=== PATIENT | male | born 1955 | race Caucasian/White ===

== ENCOUNTER 2018-11-19 17:43 | Emergency (ER) | payer SELFPAY ==
[2018-11-19] MEDS ORDERED: Lidocaine 1% with EPINEPHrine 1:100,000 20 ML MDV INJECT ONE (17:49)
--- NOTE | 2018-11-19 17:50 | EDM.PDOC ---
ED HPI GENERAL MEDICAL PROBLEM - General Chief Complaint: ENT Problem Stated Complaint: BAD BLOODY NOSE, ON BLOOD THINNERS Time Seen by Provider: 11/19/18 17:49 Source of Information: Reports: Patient History Limitations: Reports: No Limitations - History of Present Illness INITIAL COMMENTS - FREE TEXT/NARRATIVE: History of present illness: []Patient has a bloody nose that has been intermittent from the right nares 5 times since early this morning. Hydration takes an aspirin. Review of systems: As per history of present illness and below otherwise all systems reviewed and negative. Past medical history: As per history of present illness and as reviewed below otherwise noncontributory. Surgical history: As per history of present illness and as reviewed below otherwise noncontributory. Social history: No reported history of drug or alcohol abuse. Family history: As per history of present illness and as reviewed below otherwise noncontributory. Physical exam: General: Well developed, well nourished in NAD HEENT: Atraumatic, normocephalic, pupils reactive, negative for conjunctival pallor or scleral icterus, mucous membranes moist, throat clear, neck supple, nontender, trachea midline. Lungs: Clear to auscultation, breath sounds equal bilaterally, chest nontender. Heart: S1S2, regular, negative for clicks, rubs, or JVD. Abdomen: NABS, Soft, nondistended, nontender. Negative for masses or hepatosplenomegaly. Negative for costovertebral tenderness. Pelvis: Stable nontender. Genitourinary: Deferred. Rectal: Deferred. Extremities: Atraumatic, negative for cords or calf pain. Neurovascular unremarkable. Neuro: Awake, alert, oriented. Cranial nerves II through XII unremarkable. Cerebellum unremarkable. Motor and sensory unremarkable throughout. Exam nonfocal. Skin:warm and dry Diagnostics: Blood pressures 140s over 80s Therapeutics: Nares anesthetized with lidocaine with epi, hemostasis achieved there is no site of bleeding in the anterior septum of either the left or the right nares. ED Course: Patient remained stable gave him the option for packing versus observation given that bleeding is now controlled. He shows packing. Impression: Epistaxis Prescriptions: Keflex Plan: Follow up with an ER or primary care in 2 days to have packing removed turn immediately if symptoms worsen or change. Definitive disposition and diagnosis as appropriate pending reevaluation and review of above. - Related Data Allergies Allergy/AdvReac Type Severity Reaction Status Date / Time No Known Allergies Allergy Verified 11/19/18 18:02 Home Meds: Home Meds cephALEXin [Keflex] 500 mg PO Q8H #15 cap 11/19/18 [Rx] ED ROS ENT - Review of Systems Review Of Systems: ROS reveals no pertinent complaints other than HPI. ED EXAM, ENT - Physical Exam Exam: See Below Course - Vital Signs Last Recorded V/S: Last Vital Signs Temp 97.4 F 11/19/18 18:04 Pulse 89 11/19/18 18:04 Resp 16 11/19/18 18:04 BP 141/85 H 11/19/18 18:04 Pulse Ox 94 L 11/19/18 18:04 - Orders/Labs/Meds Meds: Medications Discontinued Medications Generic Name Dose Route Start Last Admin Trade Name Fei PRN Reason Stop Dose Admin Lidocaine/Epinephrine 20 ml 11/19/18 17:49 11/19/18 18:09 Xylocaine 1% With Epinephrine 1:100,000 INJECT 11/19/18 17:50 20 ml ONETIME ONE Administration Departure - Departure Time of Disposition: 18:33 Disposition: Home, Self-Care 01 Condition: Good Clinical Impression: Epistaxis - Discharge Information *PRESCRIPTION DRUG MONITORING PROGRAM REVIEWED*: No *COPY OF PRESCRIPTION DRUG MONITORING REPORT IN PATIENT TAMIKA: No Referrals: PCP,Unknown [Primary Care Provider] - Forms: ED Department Discharge Additional Instructions: The following information is given to patients seen in the emergency department who are being discharged to home. This information is to outline your options for follow-up care. We provide all patients seen in our emergency department with a follow-up referral. The need for follow-up, as well as the timing and circumstances, are variable depending upon the specifics of your emergency department visit. If you don't have a primary care physician on staff, we will provide you with a referral. We always advise you to contact your personal physician following an emergency department visit to inform them of the circumstance of the visit and for follow-up with them and/or the need for any referrals to a consulting specialist. The emergency department will also refer you to a specialist when appropriate. This referral assures that you have the opportunity for follow-up care with a specialist. All of these measure are taken in an effort to provide you with optimal care, which includes your follow-up. Under all circumstances we always encourage you to contact your private physician who remains a resource for coordinating your care. When calling for follow-up care, please make the office aware that this follow-up is from your recent emergency room visit. If for any reason you are refused follow-up, please contact the [facility] Emergency Department at and asked to speak to the emergency department charge nurse. Take meds as directed, follow up with your primary care physician, return to ER if symptoms worsen or change. [facility] [address] [place] [id number]
== END 2018-11-19 19:10 | disposition home or self-care (01) ==
LOC: MW.ED 17:43
DX: R04.0 Epistaxis (principal)
CPT/HCPCS: 99283

== ENCOUNTER 2018-11-20 04:25 | Emergency (ER) | payer SELFPAY ==
--- NOTE | 2018-11-20 04:30 | EDM.PDOC ---
ED HPI GENERAL MEDICAL PROBLEM - General Stated Complaint: BLOODY NOSE Time Seen by Provider: 11/20/18 04:29 - History of Present Illness INITIAL COMMENTS - FREE TEXT/NARRATIVE: HISTORY AND PHYSICAL: History of present illness: The patient is a 63-year-old male who takes a baby aspirin daily and was seen here in the emergency department yesterday evening and evaluated at approximately 5:45 PM for an intermittent bloody nose on the right side. The chart has been reviewed and the patient was treated with medication and a pack was placed and he was also given Keflex for home. He was discharged from the ED at 7 PM. The patient says that he was doing fine and then this morning he noticed some wetness on his left naris and said that there was bleeding from it and he came for reevaluation. He said that there was some blood going down the back of his throat but he has had no chest pain shortness of breath vomiting or abdominal complaints. The patient has a history of hypercholesterolemia hypertension for which she takes medications Review of systems: As per history of present illness and below otherwise all systems reviewed and negative. Past medical history: As per history of present illness and as reviewed below otherwise noncontributory. Surgical history: As per history of present illness and as reviewed below otherwise noncontributory. Social history: No reported history of drug or alcohol abuse. Family history: As per history of present illness and as reviewed below otherwise noncontributory. Physical exam: General: Well-developed well-nourished man who is nontoxic and vital signs are noted by me. HEENT: Atraumatic, normocephalic, pupils reactive, negative for conjunctival pallor or scleral icterus, mucous membranes moist, throat clear, neck supple, nontender, trachea midline. There is no posterior oropharyngeal bleeding and there is some trickling of blood from the left nare. A Rhino Rocket is seen emerging from the right there and the balloon is completely deflated. Lungs: Clear to auscultation, breath sounds equal bilaterally, chest nontender. Heart: S1S2, regular rate and rhythm no overt murmurs Abdomen: Soft, nondistended, nontender. NABS Pelvis: Deferred Genitourinary: Deferred. Rectal: Deferred. Extremities: Atraumatic, negative for cords or calf pain. Neurovascular unremarkable. Neuro: Awake, alert, oriented. Cranial nerves II through XII unremarkable. Cerebellum unremarkable. Motor and sensory unremarkable throughout. Exam nonfocal. Diagnostics: CBC INR Therapeutics: Initially I just reinflated the balloon of the existing Rhino Rocket and the bleeding has stopped. I am going to observe the patient and have discussed with him replacing the Rhino Rocket that is present because it is partially emerging and may need to be a larger size. On reevaluation the patient is still having some blood from the left side of the nose. The Rhino Rocket was deflated and removed and on visual inspection it was a 4.5 cm size. After blowing out the blood I reevaluated and there is excoriated mucosa and septum bilaterally but the right is greater than the left. Upon asking the patient he says that most of the nasal bleeding he had yesterday was on the right although it was bilateral at times and sometimes only on the left but the right was the primary problem. I explained to the patient that I would be replacing the Rhino Rocket with a 5.5 cm size. This new Rhino Rocket was placed in the right side of the nose without complication and the balloon was partially inflated with good hemostasis. There is no oropharyngeal bleeding and no bleeding from the left side of the nose. I will continue to monitor the balloon and bleeding. Reevaluation the patient is not having any active bleeding and feels overall improved. A mustache dressing will be placed by nursing. I have rechecked the balloon several times and is staying inflated with 9 mL of air. The patient says that there is a lot of pressure and he cannot tolerate more than that. Impression: Recurrent epistaxis, Rhino Rocket balloon deflation; replacement of Rhino Rocket Definitive disposition and diagnosis as appropriate pending reevaluation and review of above. - Related Data Allergies Allergy/AdvReac Type Severity Reaction Status Date / Time No Known Allergies Allergy Verified 11/19/18 18:02 Home Meds: Home Meds cephALEXin [Keflex] 500 mg PO Q8H #15 cap 11/19/18 [Rx] Simvastatin 0 mg PO DAILY 11/20/18 [History] amLODIPine Besylate [Amlodipine Besylate] 0 mg PO DAILY 11/20/18 [History] Past Medical History Cardiovascular History: Reports: High Cholesterol, Hypertension Other Musculoskeletal History: toe Psychiatric History: Reports: Depression Social & Family History - Family History Family Medical History: Noncontributory ED ROS GENERAL - Review of Systems Review Of Systems: ROS reveals no pertinent complaints other than HPI. ED EXAM, GENERAL - Physical Exam Exam: See Below (See dictation) Course - Vital Signs Last Recorded V/S: Last Vital Signs Temp 36.1 C 11/20/18 04:25 Pulse 96 11/20/18 04:25 Resp 18 11/20/18 04:25 BP 131/87 11/20/18 04:25 Pulse Ox 94 L 11/20/18 04:25 - Orders/Labs/Meds Orders: Active Orders 24 hr Category Date Time Status Communication Order [RC] STAT Care 11/20/18 05:26 Ordered Labs: Laboratory Tests 11/20/18 11/20/18 Range/Units 05:10 05:10 WBC 11.98 H (4.0-11.0) K/uL RBC 4.82 (4.50-5.90) M/uL Hgb 13.2 (13.0-17.0) g/dL Hct 41.5 (38.0-50.0) % MCV 86.1 (80.0-98.0) fL MCH 27.4 (27.0-32.0) pg MCHC 31.8 (31.0-37.0) g/dL RDW Std Deviation 42.4 (28.0-62.0) fl RDW Coeff of Jaquelin 14 (11.0-15.0) % Plt Count 276 (150-400) K/uL MPV 10.80 (7.40-12.00) fL Neut % (Auto) 66.6 (48.0-80.0) % Lymph % (Auto) 23.9 (16.0-40.0) % [place] % (Auto) 7.3 (0.0-15.0) % Eos % (Auto) 1.8 (0.0-7.0) % Baso % (Auto) 0.4 (0.0-1.5) % Neut # (Auto) 8.0 H (1.4-5.7) K/uL Lymph # (Auto) 2.9 H (0.6-2.4) K/uL [place] # (Auto) 0.9 H (0.0-0.8) K/uL Eos # (Auto) 0.2 (0.0-0.7) K/uL Baso # (Auto) 0.1 (0.0-0.1) K/uL Nucleated RBC % 0.0 /100WBC Nucleated RBCs # 0 K/uL INR 0.99 Departure - Departure Time of Disposition: 05:28 Disposition: Home, Self-Care 01 Condition: Good Clinical Impression: Recurrent epistaxis - Discharge Information Referrals: PCP,None [Primary Care Provider] - Aly Ott MD [Ordering Only Provider] - Additional Instructions: The following information is given to patients seen in the emergency department who are being discharged to home. This information is to outline your options for follow-up care. We provide all patients seen in our emergency department with a follow-up referral. The need for follow-up, as well as the timing and circumstances, are variable depending upon the specifics of your emergency department visit. If you don't have a primary care physician on staff, we will provide you with a referral. We always advise you to contact your personal physician following an emergency department visit to inform them of the circumstance of the visit and for follow-up with them and/or the need for any referrals to a consulting specialist. The emergency department will also refer you to a specialist when appropriate. This referral assures that you have the opportunity for followup care with a specialist. All of these measure are taken in an effort to provide you with optimal care, which includes your followup. Under all circumstances we always encourage you to contact your private physician who remains a resource for coordinating your care. When calling for followup care, please make the office aware that this follow-up is from your recent emergency room visit. If for any reason you are refused follow-up, please contact the [facility] emergency department at and ask to speak to the emergency department charge nurse. [facility] Primary care- Internal Medicine and Family [address] [address] The pack should be removed in 48 hours and continue taking the Keflex your given earlier this evening for prophylaxis of a sinus infection. Do not manipulate the nose or blow the nose. Please try to sleep on a 30 incline and if you need to sneeze please hold the pack in place as we discussed. Please follow-up with an manager market research and you have been given information on Dr. Ott our referral doctor in [facility]. You may also see a provider when you get home to [place]. Return to ER as needed and as discussed - My Orders Last 24 Hours: My Active Orders 11/20/18 05:26 Communication Order [RC] STAT - Assessment/Plan Last 24 Hours: My Active Orders 11/20/18 05:26 Communication Order [RC] STAT
== END 2018-11-20 05:45 | disposition home or self-care (01) ==
LOC: MW.ED 04:25
DX: R04.0 Epistaxis (principal); E78.00 Pure hypercholesterolemia, unspecified; I10 Essential (primary) hypertension; F32.9 Major depressive disorder, single episode, unspecified; Z79.899 Other long term (current) drug therapy
CPT/HCPCS: 36415; 85025; 85610; 99283